=== PATIENT | female | born 1975 | race Two or more races ===

== ENCOUNTER 2017-01-31 18:59 | Emergency (ER) | payer BC, OTHER ==
[2017-01-31] MEDS ORDERED: Lidocaine/Prilocaine 2.5-2.5% Crm 5 GM Tube ONE (19:04)
[2017-01-31 19:06] VITALS: BP 144/91
--- NOTE | 2017-01-31 19:35 | EDM.PDOC ---
ED HPI Skin/Rash - General Chief Complaint: Laceration Stated Complaint: laceration to right hand Time Seen by Provider: 01/31/17 19:05 Source: Reports: Patient History Limitations: Reports: No limitations - History of Present Illness INITIAL COMMENTS - FREE TEXT/NARRATIVE: The patient presents with a laceration to her thumb that she sustained while cleaning a vase. She reports part of the vase broke and she cut her her thumb. It happened just prior to arrival. She had the wound covered with a paper towel. She denies other injuries or complaints. She states she received a tetanus vaccination recently. - Related Data Allergies Allergy/AdvReac Type Severity Reaction Status Date / Time levofloxacin [From Levaquin] Allergy Hives Verified 01/31/17 19:07 Home Meds: Ambulatory Orders Medication Instructions Recorded Confirmed D-Methorphan/PE/Acetaminophen 1 each PO Q4HR PRN 01/31/17 01/31/17 [Sudafed PE Pressure+Pain+Cough] Past Medical History - Past Surgical History GI Surgical History: Reports: Cholecystectomy Social & Family History - Tobacco Use Smoking Status *Q: Never Smoker Second Hand Smoke Exposure: No - Caffeine Use Caffeine Use: Reports: Coffee - Recreational Drug Use Recreational Drug Use: No ED ROS GENERAL - Review of Systems Review Of Systems: ROS reveals no pertinent complaints other than HPI. ED EXAM, SKIN/RASH Exam: See Below Exam Limited By: No limitations General Appearance: alert, WD/WN, no apparent distress Eye Exam: bilateral eye: EOMI, normal fundi, normal inspection, PERRL Ears: normal external exam, normal canal, hearing grossly normal, normal TMs Nose: normal inspection, normal mucosa, no blood Throat/Mouth: Normal inspection, Normal lips, Normal teeth, Normal gums, Normal oropharynx, Normal voice Head: atraumatic, normocephalic Neck: normal inspection Respiratory/Chest: no respiratory distress, lungs clear, normal breath sounds, no accessory muscle use Cardiovascular: normal peripheral pulses, regular rate, rhythm, no edema, no gallop, no murmur, no rub GI/Abdominal: normal bowel sounds, soft, non tender, no organomegaly, no distention Extremities: normal inspection, normal range of motion, normal capillary refill Neurological: alert, oriented, CN II-XII intact, normal cognition, normal gait, normal reflexes, no motor/sensory deficits Psychiatric: normal affect, normal mood Skin: Warm, Dry, Normal color, No rash, Other (There is a 1 cm laceration to her right dorsal thumb at the base and lateral aspect of the thumb down to superficial dermal layer no active bleeding or gross contamination.) ED SKIN PROCEDURES - Laceration/Wound Repair Right Finger Lac/wound length in cm: 1 (R dorsal base of thumb) Appearance: subcutaneous, linear, clean Distal NVT: neuro & vascular intact, no tendon injury Anesthetic type: local Local anesthesia - Lidocaine (Xylocaine): 1% plain Local anesthetic volume: 3cc Skin prep: providone-iodine (betadine) Saline irrigation (cc's): 30 (Copiously irrigated.) Exploration/Debridement/Repair: wound explored, explored to base Closed with: sutures Suture size: other (5-0) Suture type: nylon Sterile dressing applied: nurse (Wound covered with antibiotic ointment, sterile Telfa, and tape.) Tetanus status addressed: Yes Complications: No Progress/Comments: Patient tolerated well with no complaints or complications. Course - Vital Signs Last Recorded V/S: Last Vital Signs Temp 37.1 C 01/31/17 19:01 Pulse 92 01/31/17 19:01 Resp 16 01/31/17 19:01 BP 144/91 H 01/31/17 19:01 Pulse Ox 100 01/31/17 19:01 - Orders/Labs/Meds Meds: Medications Discontinued Medications Generic Name Dose Route Start Last Admin Trade Name Bernardoq PRN Reason Stop Dose Admin Lidocaine HCl 5 ml 01/31/17 19:16 01/31/17 19:48 Xylocaine-Mpf 1% INJECT 01/31/17 19:17 5 ml ONETIME ONE Administration Lidocaine/Prilocaine Confirm 01/31/17 19:04 01/31/17 19:45 Emla Crm Administered 01/31/17 19:05 5 gram Dose Administration 5 gm .ROUTE .STK-MED ONE Neomycin/Polymyxin/Bacitracin Confirm 01/31/17 20:12 01/31/17 20:16 Triple Antibiotic Oint Administered 01/31/17 20:13 1 each Dose Administration 1 each .ROUTE .STK-MED ONE Departure - Departure Time of Disposition: 20:18 Disposition: Home, Self-Care 01 Clinical Impression: Laceration of right thumb Qualifiers: Encounter type: initial encounter Qualified Code(s): S61.011A - Laceration without foreign body of right thumb without damage to nail, initial encounter Instructions: Sutured Wound Care Forms: ED Department Discharge Additional Instructions: 1. Wound cleaned as described above and suture closure performed with application of antibiotic ointment and sterile dressing. 2. Patient instructed to keep covered and dry for 48 hours, then may remove dressing and shower and clean with mild soap but do not soak until sutures removed. 3. Confirmed tetanus up to date. 4. OTC acetaminophen 325-1,000 mg every 4-6 hours or ibuprofen 200-600 mg every 6 hours as needed for pain. 5. 5 pound lifting restriction until sutures removed. 6. Followup in clinic in 7-10 days for suture removal or sooner if increased pain, redness, swelling, opening of wound, or drainage from wound. - Assessment/Plan Assessment:: Laceration of right dorsal thumb base, 1 cm Plan: 1. Wound cleaned as described above and suture closure performed with application of antibiotic ointment and sterile dressing. 2. Patient instructed to keep covered and dry for 48 hours, then may remove dressing and shower and clean with mild soap but do not soak until sutures removed. 3. Confirmed tetanus up to date. 4. OTC acetaminophen 325-1,000 mg every 4-6 hours or ibuprofen 200-600 mg every 6 hours as needed for pain. 5. 5 pound lifting restriction until sutures removed. 6. Followup in clinic in 7-10 days for suture removal or sooner if increased pain, redness, swelling, opening of wound, or drainage from wound.
[2017-01-31] MEDS ORDERED: Bacitracin/Neomycin/Polymyxin B Oint 0.9 GM U/D Packet ONE (20:12)
== END 2017-01-31 20:31 | disposition home or self-care (01) ==
LOC: LL.ED 18:59
DX: S61.011A Laceration without foreign body of right thumb without damage to nail, initial encounter (principal); Z90.49 Acquired absence of other specified parts of digestive tract; W45.8XXA Other foreign body or object entering through skin, initial encounter; Y93.89 Activity, other specified
CPT/HCPCS: 12001; 99282; A9270

== ENCOUNTER 2017-05-03 07:25 | Emergency (ER) | payer BC, OTHER ==
[2017-05-03] MEDS ORDERED: Tetracaine HCl/PF 0.5% 4 ML Bottle ONE (07:44)
--- NOTE | 2017-05-03 08:27 | EDM.PDOC ---
ED HPI GENERAL MEDICAL PROBLEM - General Chief Complaint: Eye Problems Stated Complaint: Chemical in Eye Time Seen by Provider: 05/03/17 07:40 Source of Information: Reports: Patient History Limitations: Reports: No Limitations - History of Present Illness INITIAL COMMENTS - FREE TEXT/NARRATIVE: This is Dr. 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 Marquez at 1 call and he wanted me to irrigate 2 more liters and 5 minutes later checked the pH again prior to this we did call poison control and got similar advice Onset: Today, Sudden Onset Time: 07:25 Duration: Minutes: Location: Reports: Head (Left eye) Quality: Reports: Burning Severity: Moderate Improves with: Reports: Other (After irrigation) Worsens with: Reports: None Context: Reports: Other (Working) Associated Symptoms: Reports: No Other Symptoms Treatments PRODUCT EXAMINER: Reports: Other (see below) Other Treatments PRODUCT EXAMINER: Eye Rinse - Related Data Allergies Allergy/AdvReac Type Severity Reaction Status Date / Time levofloxacin [From Levaquin] Allergy Hives Verified 05/03/17 07:33 Home Meds: Home Meds . [No Known Home Meds] 05/03/17 [History] Past Medical History - Past Surgical History GI Surgical History: Reports: Cholecystectomy Social & Family History - Tobacco Use Smoking Status *Q: Never Smoker Second Hand Smoke Exposure: No - Caffeine Use Caffeine Use: Reports: Coffee - Recreational Drug Use Recreational Drug Use: No ED ROS GENERAL - Review of Systems Review Of Systems: See Below Constitutional: Reports: No Symptoms HEENT: Reports: Eye Pain Respiratory: Reports: No Symptoms Cardiovascular: Reports: No Symptoms Endocrine: Reports: No Symptoms GI/Abdominal: Reports: No Symptoms : Reports: No Symptoms Musculoskeletal: Reports: No Symptoms Skin: Reports: No Symptoms Neurological: Reports: No Symptoms Psychiatric: Reports: No Symptoms Hematologic/Lymphatic: Reports: No Symptoms Immunologic: Reports: No Symptoms ED EXAM GENERAL W FULL EYE - Physical Exam Exam: See Below Exam Limited By: No Limitations General Appearance: Alert, WD/WN, No Apparent Distress Eyelids: Left: Edema, Infraorbital Anesthesia, Lid Everted for Exam Conjunctiva & Sclera: Left: Conjunctival Edema, Discharge, Subconjuctival Hemorrhage Cornea Exam: Bilateral: Normal Appearance Extraocular Movements: Bilateral: Intact Pupils: Normal Accommodation Pupillary Size: Bilateral: 3 mm Pupillary Reaction: Bilateral: Brisk Comments: Sclera pH 7 after irrigation Ears: Normal External Exam, Normal Canal, Hearing Grossly Normal, Normal TMs Nose: Normal Inspection, Normal Mucosa, No Blood Throat/Mouth: Normal Inspection, Normal Lips, Normal Teeth, Normal Gums, Normal Oropharynx, Normal Voice, No Airway Compromise Head: Atraumatic, Normocephalic Neck: Normal Inspection, Supple, Non-Tender, Full Range of Motion Respiratory/Chest: No Respiratory Distress, Lungs Clear, Normal Breath Sounds, No Accessory Muscle Use, Chest Non-Tender Cardiovascular: Normal Peripheral Pulses, Regular Rate, Rhythm, No Edema, No Gallop, No JVD, No Murmur, No Rub GI/Abdominal: Normal Bowel Sounds, Soft, Non-Tender, No Organomegaly, No Distention, No Abnormal Bruit, No Mass (Female) Exam: Other (Deferred) Rectal (Female) Exam: Deferred Back Exam: Normal Inspection, Full Range of Motion, NT Extremities: Normal Inspection, Normal Range of Motion, Non-Tender, Normal Capillary Refill, No Pedal Edema Neurological: Alert, Oriented, CN II-XII Intact, Normal Cognition, Normal Gait, Normal Reflexes, No Motor/Sensory Deficits Course - Orders/Labs/Meds Meds: Medications Discontinued Medications Generic Name Dose Route Start Last Admin Trade Name Freq PRN Reason Stop Dose Admin Tetracaine HCl Confirm 05/03/17 07:44 Tetracaine 0.5% Steri-Unit Maricel Administered 05/03/17 07:45 Dose 4 ml .ROUTE .STK-MED ONE Departure - Departure Time of Disposition: 08:55 Disposition: DC/Tfer to Other 70 Condition: Good Clinical Impression: Chemical burn due to alkali, conjunctiva - Discharge Information Forms: ED Department Discharge Additional Instructions: I was irrigated with saline with total of 4 L pH checked after 2 L was 7 then rechecked after the second 2 L and still is 7 at this time I'll call Dr. Marquez for any further instruction at this time the pH remained at 7 he suggested that he see her today so we will send her to [facility] 1 call called and explained the situation and the conversation with Dr. Marquez.
[2017-05-03 08:58] VITALS: BP 134/76
== END 2017-05-03 09:15 | disposition other institution (70) ==
LOC: LL.ED 07:25
DX: T54.3X1A Toxic effect of corrosive alkalis and alkali-like substances, accidental (unintentional), initial encounter (principal); T26.62XA Corrosion of cornea and conjunctival sac, left eye, initial encounter; Z90.49 Acquired absence of other specified parts of digestive tract; Z88.1 Allergy status to other antibiotic agents
CPT/HCPCS: 99284; A9270

== ENCOUNTER 2020-02-04 18:35 | Emergency (ER) | payer BC ==
[2020-02-04 18:43] VITALS: BP 135/76; PULSE 98
--- NOTE | 2020-02-04 19:30 | EDM.PDOC ---
ED HPI GENERAL MEDICAL PROBLEM - General Chief Complaint: Upper Extremity Injury/Pain Stated Complaint: LEFT ARM INJURY Time Seen by Provider: 02/04/20 18:51 Source of Information: Reports: Patient History Limitations: Reports: No Limitations - History of Present Illness INITIAL COMMENTS - FREE TEXT/NARRATIVE: Patient playing soccer with family at home. Fell, injured left elbow in process. Denies other injuries. Has pain in elbow area, 8/10. Pain does not radiate. Denies pain above or below elbow. Denies other injuries. No numbness /tingling reported. Skin intact. No other complaints/injuries. 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 ED EXAM, GENERAL - Physical Exam Exam: See Below Exam Limited By: No Limitations General Appearance: Alert, WD/WN, Mild Distress Eye Exam: Bilateral Eye: EOMI, PERRL Throat/Mouth: Normal Lips, Normal Voice, No Airway Compromise Head: Atraumatic, Normocephalic Neck: Supple Respiratory/Chest: No Respiratory Distress Peripheral Pulses: 2+: Radial (L) Extremities: Normal Capillary Refill, Limited Range of Motion (left elbow), Other (Tenderness near left proximal radius. Forearm/hand/wrist nontender on left. Left shoulder/humerus nontender. ). No: Increased Warmth, Mottled, Pallor , Redness Neurological: Alert, Oriented, Normal Cognition, Normal Gait, Sensory/Motor Deficit (Pain with any attempt to move left elbow. No focal numbness. ) Skin Exam: Warm, Dry, Intact, Normal Color. No: Ecchymosis, Erythema, Mottled, Pallor ED TRAUMA EXTREMITY PROCEDURES - Splinting Left Upper Extremity Splint Site: left elbow Pre-Procedure NV Status: Normal Post-Procedure NV Status: Normal Splint Material: Fiberglass Splint Design: Posterior Applied & Form Fitted By: Provider Provider Post-Splint Application NV Check: NV Status Normal, Good Position Complications: No Course - Vital Signs Last Recorded V/S: Last Vital Signs Temp 36.5 C 02/04/20 18:36 Pulse 98 02/04/20 18:36 Resp 20 02/04/20 18:36 BP 135/76 02/04/20 18:36 Pulse Ox 100 02/04/20 18:36 - Orders/Labs/Meds Orders: Active Orders 24 hr Category Date Time Status Elbow 2V Lt [CR] Stat Exams 02/04/20 18:51 Taken - Radiology Interpretation Free Text/Narrative:: xray confirms minimally displaced mild radial head fracture - Re-Assessments/Exams Free Text/Narrative Re-Assessment/Exam: 02/04/20 19:33 Elbow placed in posterior splint. No arm sling was available to give to patient. Sling substitute fashioned from bedding. Patient is employee and can return this to us. Radial head fracture information given to patient. Fracture appears to be minimally displaced so she may benefit from short time in sling then early ROM work with PT. She is to follow up with PCP Thursday by phone to see if they wish to follow her locally or have her seen by Ortho. Departure - Departure Time of Disposition: 19:52 Disposition: Home, Self-Care 01 Condition: Good Clinical Impression: Radial head fracture, closed Qualifiers: Encounter type: initial encounter Fracture alignment: nondisplaced Laterality: left Qualified Code(s): S52.125A - Nondisplaced fracture of head of left radius , initial encounter for closed fracture - Discharge Information *PRESCRIPTION DRUG MONITORING PROGRAM REVIEWED*: Not Applicable *COPY OF PRESCRIPTION DRUG MONITORING REPORT IN PATIENT SASK[place]: Not Applicable Instructions: Radial Head Elbow Fracture With Rehab-SportsMed Referrals: Maricarmen Novak, ACCOUNT MANAGER B2B [Primary Care Provider] - Forms: ED Department Discharge, ED Return to Work/School Form Additional Instructions: Follow up Thursday with clinic and ask them if they want you to make an appointment with them or with Ortho. Determine where you should make your next appointment. Wear splint for protection. You may use your arm sling at home if you can locate this. Tramadol one tab PO every 6 hours for pain. OK to take Tramadol with Ibuprofen or Tylenol. Follow up otherwise as needed if you have problems/concerns. Sepsis Event Note - Evaluation Sepsis Screening Result: No Definite Risk - Focused Exam Vital Signs: Vital Signs Temp Pulse Resp BP Pulse Ox 02/04/20 18:36 36.5 C 98 20 135/76 100 Date Exam was Performed: 02/04/20 Time Exam was Performed: 19:51 - My Orders Last 24 Hours: My Active Orders 02/04/20 18:51 Elbow 2V Lt [CR] Stat - Assessment/Plan Last 24 Hours: My Active Orders 02/04/20 18:51 Elbow 2V Lt [CR] Stat
== END 2020-02-04 20:00 | disposition home or self-care (01) ==
LOC: LL.ED 18:35
DX: S52.125A Nondisplaced fracture of head of left radius, initial encounter for closed fracture (principal); Z88.8 Allergy status to other drugs, medicaments and biological substances; W18.30XA Fall on same level, unspecified, initial encounter; Y93.66 Activity, soccer; Y92.009 Unspecified place in unspecified non-institutional (private) residence as the place of occurrence of the external cause
CPT/HCPCS: 29105; 73070-LT; 99283-25